=== PATIENT | male | born 1995 | race African-American/Black ===

== ENCOUNTER 2020-10-30 11:08 | Emergency (ER) | payer MEDICAID ==
[~2020-10-30] VITALS: Ht 180.3 cm; Wt 68.0 kg
[2020-10-30 11:08] VITALS: BP_SYST 144
== END 2020-10-30 11:25 ==
LOC: EDBD 11:08 → SED 11:08
DX: Z13.89 Encounter for screening for other disorder (principal)
CPT/HCPCS: 99283